=== PATIENT | female | born 1985 | race Caucasian/White ===

== ENCOUNTER 2017-02-17 17:48 | Emergency (ER) | payer OTHER ==
[~2017-02-17] VITALS: Ht 160 cm; Wt 79.4 kg
--- NOTE | 2017-02-17 20:10 | ED SKIN/ALLERGY COMPLAINT ---
History of Present Illness General Chief Complaint: General Adult Stated Complaint: CELLULITIS (RT LEG) Source: patient Exam Limitations: no limitations Vital Signs & Intake/Output Vital Signs & Intake/Output Vital Signs Date Time Temp Pulse Resp B/P B/P Pulse O2 O2 Flow FiO2 Mean Ox Delivery Rate 02/17 2131 97.4 85 18 128/58 97 Room Air 02/17 1753 97.2 95 18 143/91 98 Room Air ED Intake and Output 02/18 0000 02/17 1200 Intake Total Output Total Balance Patient 175 lb Weight Weight Reported by Patient Measurement Method Allergies Coded Allergies: No Known Allergies (02/17/17) Reconcile Medications Clindamycin HCl 300 MG CAPSULE 1 CAP PO TID ANTIBIOTIC (Reported) Mupirocin 2 % OINT...G. 1 DAVY TOP BID RIGHT CALF - LEG (Reported) apply to affected area(s) Norgestimate-Ethinyl Estradiol (Ortho Tri-Cyclen Lo Tablet) [id number] LO TABLET 1 TAB PO DAILY CONTROL (Reported) Triage Note: 32 YO FEMALE TO ER FOR EVAL OF CELLULITIS. STATES SHE HAS HAD CELLULTIIS TO RLE FOR A COUPLE DAYS. STATES SHE WAS SEEN BY HER DR AND PLACED ON CLINDAMYCIN BUT ITS NOT IMPROVING. AFEBRILE. RLE BANDAGED AT THIS TIME. Triage Nurses Notes Reviewed? yes Onset: Abrupt Duration: day(s):, constant, continues in ED Timing: recent history Severity: moderate Location: extremities No Modifying Factors: none : No Patient currently breastfeeds: No HPI: 32-year-old female comes into emergency room with complaints of swelling to her right calf. Patient reports that she was bitten by a mosquito the other night. She then shaved. She had some redness to the area and was started on clindamycin. Redness is gotten better. Patient comes in for further evaluation. No fever. No vomiting. Persistent swelling. Past History Travel History Traveled to [place] past 21 day No Medical History Any Pertinent Medical History? see below for history Neurological: NONE EENT: NONE Cardiovascular: NONE Respiratory: NONE Gastrointestinal: NONE Hepatic: NONE Renal: NONE Musculoskeletal: NONE Psychiatric: NONE Endocrine: NONE Blood Disorders: NONE Cancer(s): NONE ACCOUNTING OFFICER/Reproductive: NONE Surgical History Surgical History: non-contributory Psychosocial History What is your primary language Ukrainian Tobacco Use: Never used Family History Hx Contributory? No Review of Systems Review of Systems Constitutional: Reports: no symptoms. EENTM: Reports: no symptoms. Respiratory: Reports: no symptoms. Cardiovascular: Reports: no symptoms. GI: Reports: no symptoms. Genitourinary: Reports: no symptoms. Musculoskeletal: Reports: see HPI. Skin: Reports: see HPI. Neurological/Psychological: Reports: no symptoms. Hematologic/Endocrine: Reports: no symptoms. Immunologic/Allergic: Reports: no symptoms. All Other Systems: Reviewed and Negative Physical Exam Physical Exam General Appearance: well developed/nourished, mild distress Head: atraumatic Eyes: Bilateral: normal appearance. Ears, Nose, Throat: normal ENT inspection, hearing grossly normal Neck: normal inspection Respiratory: no respiratory distress Cardiovascular: regular rate/rhythm Back: normal inspection Extremities: swelling to right calf, small area about 1 cm in diameter of redness, no surrounding erythema, no edema, Neurologic/Psych: awake, alert, oriented x 3, normal mood/affect Skin: intact, rash, see above Lymphatic: no anterior cervical gricel Progress Differential Diagnosis: abscess/cellulitis, allergic reaction, DVT, abscess, Plan of Care: Orders Procedure Date/time Status US-UNILATERAL VENOUS DOPPLER 02/17 2010 Active US-SUPERFICIAL IMAGING EXTREMI 02/17 2010 Active Diagnostic Imaging: Viewed by Me: Ultrasound. Discussed w/RAD: Ultrasound. Radiology Impression: XAM TYPE: US - US-SUPERFICIAL IMAGING EXTREMI; US- UNILATERAL VENOUS DOPPLER EXAMINATION: US DUPLEX LOWER EXTREMITY VEINS, RIGHT CLINICAL INFORMATION: Right lower extremity swelling. Recent insect bite. COMPARISON: None. TECHNIQUE: Real-time grayscale compression evaluation of the deep venous system. The compression exam is supplemented by color mapping and spectral analysis. Calf augmentation was used. Selected static images are provided for interpretation. Right FINDINGS: The deep venous system was visualized and compressible. The Doppler exam is normal. IMPRESSION: No deep venous thrombosis demonstrated. 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 Nontoxic-appearing. Patient was reported to decrease the clindamycin to 3 times a day and for a seven-day course. No signs of DVT. No signs of abscess. Barely noticeable amount of redness. Departure Departure Disposition: HOME OR SELF CARE Condition: Stable Clinical Impression Primary Impression: Cellulitis of right lower leg Referrals: UNKNOWN (PCP/Family) Additional Instructions: Take clindamycin 3 times a day 300 mg. Take for a total days of 7 days. Warm compresses over the area. Return if any spreading of redness or any other concerns worsening symptoms. Please go over all results of today's visit with your primary care doctor. Contact your primary care doctor to let them know you were here in the emergency room. There may be nonspecific findings which may not be related to your visit today here in the emergency room but may require further evaluation and chronic monitoring by your primary care doctor. If you had a laceration today the chance of foreign body always remains. You should follow-up with your primary care doctor for recheck in 3-5 days for a wound check. If you had an x-ray done there is a chance that a fracture could have been missed on initial read and you should follow-up with your primary care doctor for repeat x-rays if symptoms persist. If your blood pressure was elevated here in the emergency room please have rechecked by her primary care doctor within the next 48 hours by your primary care doctor. If you were prescribed a narcotic here in the emergency room or any type of controlled substances you're not allowed to drive while taking this medication or operate any type of heavy machinery. Narcotics can make you feel lightheaded dizziness nausea and can cause constipation. You may need to picker a stool softener. Thank you for choosing [facility] emergency room. Please return to the emergency room immediately if you have any other concerns worsening of symptoms. Departure Forms: Customer Survey General Discharge Information
--- NOTE | 2017-02-17 20:57 | ULTRASOUND REPORT ---
EXAMINATION: US DUPLEX LOWER EXTREMITY VEINS, RIGHT CLINICAL INFORMATION: Right lower extremity swelling. Recent insect bite. COMPARISON: None. TECHNIQUE: Real-time grayscale compression evaluation of the deep venous system. The compression exam is supplemented by color mapping and spectral analysis. Calf augmentation was used. Selected static images are provided for interpretation. Right FINDINGS: The deep venous system was visualized and compressible. The Doppler exam is normal. IMPRESSION: No deep venous thrombosis demonstrated.
[2017-02-17] MEDS ORDERED: ORTHO TRI-CYCL1 EAC1 PO (20:59)
[2017-02-17] MEDS ORDERED: CLINDAMYCIN HC300 M1 PO (21:00)
[2017-02-17] MEDS ORDERED: MUPIROCIN22 GM TOP (21:00)
[2017-02-17 21:31] VITALS: BP 128/58
== END 2017-02-17 21:31 ==
LOC: ERH 17:48
DX: L03.115 Cellulitis of right lower limb (principal)
CPT/HCPCS: 76881